=== PATIENT | male | born 1995 | race Caucasian/White ===

== ENCOUNTER 2018-06-30 16:48 | Emergency (ER) | payer OTHER ==
[2018-06-30 17:17] VITALS: BP 156/85
--- NOTE | 2018-06-30 17:33 | UC ---
Epistaxis Nasal HPI - HPI Summary HPI Summary: Was wrestling at 2:30 AM and was struck in the nose. Had to "pop" it back into place. - History of Current Complaint Chief Complaint: UCTrauma Stated Complaint: NOSE/RT EYE INJURY Hx Obtained From: Patient Onset/Duration: Sudden Onset, Lasting Hours - 14, Still Present Timing: Constant Severity Initially: Severe Severity Currently: Moderate Pain Intensity: 7 Aggravating Factor(s): Nasal Trauma Alleviating Factor(s): Ice Associated Signs And Symptoms: Positive: Bruising - in the right eye - Allergies/Home Medications Allergies/Adverse Reactions: Allergies Allergy/AdvReac Type Severity Reaction Status Date / Time No Known Allergies Allergy Verified 06/30/18 17:17 Home Medications: Home Medications Ibuprofen TAB* [Motrin TAB* 400 MG] 400 mg PO Q6H PRN 06/30/18 [History Confirmed 06/30/18] PMH/Surg Hx/FS Hx/Imm Hx Previously Healthy: Yes - Surgical History Surgical History: None - Social History Occupation: Student Lives: Dormitory/Roommates Alcohol Use: Occasionally Substance Use Type: None Smoking Status (MU): Never Smoked Tobacco Review of Systems All Other Systems Reviewed And Are Negative: Yes Skin: Positive: Bruising - right eye ENT: Positive: Sore Throat, Other - nasal deformity Is Patient Immunocompromised?: No Physical Exam Triage Information Reviewed: Yes Appearance: Well-Appearing, Well-Nourished, Pain Distress Vital Signs: Initial Vital Signs Temp 97.9 F 06/30/18 17:15 Pulse 81 06/30/18 17:15 Resp 15 06/30/18 17:15 BP 156/85 06/30/18 17:15 Pulse Ox 100 06/30/18 17:15 Vital Signs Reviewed: Yes Eyes: Positive: Conjunctiva Clear, Other: - Bruising and swelling right medial eye socket ENT: Positive: Pharyngeal erythema - with petechia, TMs normal Neck: Positive: Supple, Nontender Respiratory: Positive: Lungs clear Cardiovascular Exam: Normal Musculoskeletal Exam: Normal Neurological Exam: Normal Psychological Exam: Normal Skin Exam: Normal Epistaxis Nasal Course/Dx - Differential Dx/Diagnosis Differential Diagnosis/HQI/PQRI: Environmental, Epistaxis, Trauma Provider Diagnoses: Mildly displaced nasal fracture. Strep pharyngitis. Discharge - Sign-Out/Discharge Documenting (check all that apply): Patient Departure All imaging exams completed and their final reports reviewed: No - Discharge Plan Condition: Stable Disposition: HOME Prescriptions: Amoxicillin PO (*) [Amoxicillin 875 MG (*)] 875 mg PO BID #20 tab Patient Education Materials: Nasal Fracture (ED), Strep Throat (ED), Amoxicillin (By mouth) Referrals: No Primary Care Phys,NOPCP [Primary Care Provider] - Los Espinal MD [Medical Doctor] - (Follow up with ENT here of at home.) - Billing Disposition and Condition Condition: STABLE Disposition: Home
[2018-06-30] MEDS ORDERED: Amoxicillin PO (*) 500 MG CAP PO ONE (17:45)
--- NOTE | 2018-07-01 08:59 | UC ---
- Progress Note Progress Note: Patient Name: GARY DIEHL Medical Record#: [id number] Ordering Physician: Jesus Santos MD Acct.#: [id number] : 1995 Age: 23 Sex: M Location: URGENT [facility] Exam Date: 06/30/181728 ADM Status: [facility] ER Order Information: NASAL BONES 3+ VWS Accession Number: [id number] CPT: 51332 Indication: Injury to nose last night. Comparison: No relevant prior exams available on the [facility] PACS for comparison. Technique: Routine views of the nasal bones. Report: Transverse lucency most conspicuous on the RIGHT nasal bone view is consistent with a nondisplaced fracture. Overlying soft tissue swelling. Normally aerated maxillary and frontal sinuses. IMPRESSION: #. Transverse lucency most conspicuous on the RIGHT nasal bone view is consistent with a nondisplaced fracture. <Electronically signed by Wang Nguyen MD in OV> 06/30/181750 Dictated By: Wang Nguyen MD Dictated Date/Time: 06/30/181750 Transcribed Date/Time: 06/30/181746 Copy to: CC:Jesus Santos MD; No Primary Care Phys,NOPCP [facility] [address] [address] ph ([phone]) ph ([phone]) ph ([phone]) This report is only to be considered final once signed by the Provider(s) as displayed in the "<Electronically Signed by >" field (s). Absence of a signature indicates the report is in a draft status and still needs to be finalized. In the event this document was created by someone other than the signing Provider, the individual initiating the document will be listed in the "Entered by:" or "Dictated by:" cruz. 1 of 1 Discharge - Sign-Out/Discharge Documenting (check all that apply): Post-Discharge Follow Up All imaging exams completed and their final reports reviewed: Yes - Discharge Plan Condition: Stable Disposition: HOME Prescriptions: Amoxicillin PO (*) [Amoxicillin 875 MG (*)] 875 mg PO BID #20 tab Patient Education Materials: Amoxicillin (By mouth), Nasal Fracture (ED), Strep Throat (ED) Referrals: Los Espinal MD [Medical Doctor] - (Follow up with ENT here of at home.) No Primary Care Phys,NOPCP [Primary Care Provider] - - Billing Disposition and Condition Condition: STABLE Disposition: Home
== END 2018-06-30 17:53 | disposition home or self-care (01) ==
LOC: UCCORT 16:48
DX: S02.2XXA Fracture of nasal bones, initial encounter for closed fracture (principal); J02.0 Streptococcal pharyngitis; W50.0XXA Accidental hit or strike by another person, initial encounter; Y93.72 Activity, wrestling; Y92.9 Unspecified place or not applicable
CPT/HCPCS: 70160; 87651; 99202; A9270-GY; G0463

== ENCOUNTER 2018-07-24 10:32 | Emergency (ER) | payer OTHER ==
[2018-07-24 10:48] VITALS: BP 134/83
--- NOTE | 2018-07-24 10:48 | UC ---
Throat Pain/Nasal Abdoul HPI - HPI Summary HPI Summary: 23-year-old male comes to clinic today with chief complaint of sore throat. Got some runny nose. Throat is worse when he swallows. [id number] Medications decrease the pain somewhat. Is also been coughing but he does not feel short of breath. Symptoms been going on for 5 days. Throat pain is moderate. It does remind him of when he had strep throat back in June. - History of Current Complaint Stated Complaint: CONGESTION/ST Time Seen by Provider: 07/24/18 10:45 - Allergies/Home Medications Allergies/Adverse Reactions: Allergies Allergy/AdvReac Type Severity Reaction Status Date / Time No Known Allergies Allergy Verified 07/24/18 10:42 Home Medications: Home Medications D-Methorphan/PE/Acetaminophen [Daytime Cold Multi-Symp Gelcap] 1 each PO ONCE [History Confirmed 07/24/18] PMH/Surg Hx/FS Hx/Imm Hx Previously Healthy: Yes - Surgical History Surgical History: None - Family History Known Family History: Positive: Non-Contributory - Social History Alcohol Use: Occasionally Substance Use Type: None Smoking Status (MU): Never Smoked Tobacco Review of Systems All Other Systems Reviewed And Are Negative: Yes Constitutional: Positive: Negative Skin: Positive: Negative Eyes: Positive: Negative ENT: Positive: Sore Throat, Nasal Discharge, Sinus Congestion Respiratory: Positive: Cough Cardiovascular: Positive: Negative Gastrointestinal: Positive: Negative Motor: Positive: Negative Neurovascular: Positive: Negative Musculoskeletal: Positive: Negative Neurological: Positive: Negative Psychological: Positive: Negative Is Patient Immunocompromised?: No Physical Exam Triage Information Reviewed: Yes Appearance: No Pain Distress, Well-Nourished, Ill-Appearing - MILD Vital Signs Reviewed: Yes Eye Exam: Normal Eyes: Positive: Conjunctiva Clear ENT: Positive: Pharyngeal erythema, Nasal congestion, Nasal drainage, TMs normal Neck exam: Normal Neck: Positive: Supple Respiratory: Positive: Lungs clear, Normal breath sounds, No respiratory distress Cardiovascular: Positive: RRR Musculoskeletal Exam: Normal Musculoskeletal: Positive: Strength Intact, ROM Intact Neurological Exam: Normal Neurological: Positive: Alert, Muscle Tone Normal Psychological Exam: Normal Psychological: Positive: Age Appropriate Behavior Skin Exam: Normal Throat Pain/Nasal Course/Dx - Course Course Of Treatment: DISCUSSED VIRAL VERSES BACTERIAL INFECTION AND THE ROLE OF ANTIBIOTICS. THE PATIENT WISHES TO BE ON ANTIBIOTIC AT THIS TIME. - Differential Dx/Diagnosis Provider Diagnosis: Pharyngitis Discharge - Sign-Out/Discharge Documenting (check all that apply): Patient Departure All imaging exams completed and their final reports reviewed: No Studies - Discharge Plan Condition: Stable Disposition: HOME Prescriptions: Amoxicillin/Clavulanate TAB* [Augmentin TAB 875*] 875 mg PO BID #20 tab Patient Education Materials: Pharyngitis (ED) Referrals: [facility] [Outside] Additional Instructions: FOLLOW UP WITH YOUR DOCTOR IF NOT COMPLETELY IMPROVED. GET RECHECKED FOR ANY WORSENING OF YOUR CONDITION OR QUESTIONS OR CONCERNS. - Billing Disposition and Condition Condition: STABLE Disposition: Home
== END 2018-07-24 11:00 | disposition home or self-care (01) ==
LOC: UCCORT 10:32
DX: J02.9 Acute pharyngitis, unspecified (principal)
CPT/HCPCS: 99201; G0463

== ENCOUNTER 2018-12-06 12:09 | Emergency (ER) | payer OTHER ==
[2018-12-06 12:29] VITALS: BP 122/72
--- NOTE | 2018-12-06 12:39 | UC ---
Complaint Male HPI - HPI Summary HPI Summary: sores on penis x 4 days 2 sores on the shaft of his penis, + red , swollen, mild tenderness, no discharge pt. has a new partner , no hx of STDs, no dyuria , no penile discharge no fever, no chills - History of Current Complaint Chief Complaint: UCGeneralIllness Stated Complaint: PERSONAL Time Seen by Provider: 12/06/18 12:17 Hx Obtained From: Patient Onset/Duration: Gradual Onset, Lasting Days - 4, Still Present Timing: Constant Severity Initially: Moderate Severity Currently: Moderate Pain Intensity: 0 Location: Penis Aggravating Factor(s): Palpation Alleviating Factor(s): Nothing Associated Signs And Symptoms: Negative: Fever, Dysuria, Blood in Stool, Rectal Pain, Appetite, Nausea, Vomiting(# Of Episodes =), Penile Swelling, Penile Discharge - Allergies/Home Medications Allergies/Adverse Reactions: Allergies Allergy/AdvReac Type Severity Reaction Status Date / Time No Known Allergies Allergy Verified 12/06/18 12:16 Home Medications: Home Medications NK [No Home Medications Reported] 12/06/18 [History Confirmed 12/06/18] PMH/Surg Hx/FS Hx/Imm Hx Previously Healthy: Yes - Surgical History Surgical History: Yes Surgery Procedure, Year, and Place: broken nose - Family History Known Family History: Positive: Non-Contributory Negative: Diabetes - Social History Alcohol Use: Occasionally Substance Use Type: None Smoking Status (MU): Never Smoked Tobacco - Immunization History Most Recent Tetanus Shot: utd Review of Systems All Other Systems Reviewed And Are Negative: Yes Constitutional: Positive: Negative Skin: Positive: Negative Eyes: Positive: Negative ENT: Positive: Negative Respiratory: Positive: Negative Motor: Positive: Negative Is Patient Immunocompromised?: No Physical Exam Triage Information Reviewed: Yes Appearance: Well-Appearing, No Pain Distress, Well-Nourished Vital Signs: Initial Vital Signs Temp 97 F 12/06/18 12:17 Pulse 61 12/06/18 12:17 Resp 16 12/06/18 12:17 BP 122/72 12/06/18 12:17 Pulse Ox 100 12/06/18 12:17 Vital Signs Reviewed: Yes Eye Exam: Normal Eyes: Positive: Conjunctiva Clear ENT: Positive: Normal ENT inspection, Hearing grossly normal, Pharynx normal Neck: Positive: Supple, Nontender, No Lymphadenopathy Respiratory: Positive: Chest non-tender, Lungs clear, Normal breath sounds Cardiovascular: Positive: RRR, No Murmur, Pulses Normal Skin: Positive: Rashes - papular rash located on the penile shaft, + erythema, mild tenderness Complaint Male Course/Dx - Course Course Of Treatment: will check for GC and Chlym will check for HSV culture and HSM IGM please call the office, in 2 days will start treatment if any positive results - Differential Dx/Diagnosis Provider Diagnosis: Rash of penis Discharge - Sign-Out/Discharge Documenting (check all that apply): Patient Departure All imaging exams completed and their final reports reviewed: No Studies - Discharge Plan Condition: Stable Disposition: HOME Patient Education Materials: Sexually Transmitted Diseases (ED) Referrals: No Primary Care Phys,NOPCP [Primary Care Provider] - 7 Days Additional Instructions: will check for GC and Chlym will check for HSV culture and HSM IGM please call the office, in 2 days will start treatment if any positive results - Billing Disposition and Condition Condition: STABLE Disposition: Home
[2018-12-09 13:20] LABS: Neisseria gonorrhoeae (GC) RNA Negative (Negative)
[2018-12-09 19:24] LABS: HSV 1 PCR Positive (Negative); Herpes Source PENIS
== END 2018-12-06 12:56 | disposition home or self-care (01) ==
LOC: UCCORT 12:09
DX: R21 Rash and other nonspecific skin eruption (principal)
CPT/HCPCS: 86694; 87491; 87529; 87591; 99211; G0463